=== PATIENT | male | born 1960 | race Caucasian/White ===

== ENCOUNTER 2016-06-08 13:17 | Inpatient (IN) | payer MEDICARE ==
--- NOTE | ~2016-06-08 | OP ---
Record Of Operation [facility] [address] [place]. [address] NAME: KEVAN GRIGGS : [birth year] STATUS : ADM IN PAT#: [id number] AGE: 49 ADM/REG DATE : 06/08/16 MR#: [id number] REPORT SERV DATE: 06/09/16 DICTATED BY: GUY MABRY DATE: 06/09/16 REPORT STATUS : Draft TRANSCRIBED BY: MODL DATE: 06/09/16 DATE OF PROCEDURE: 06/09/2016 CENTRAL LINE INSERTION INDICATION: Poor venous access during respiratory code. Under sterile technique on the [address] [place] [address] unit, room 109, a triple lumen was inserted into the patient, Kevan Griggs. PROCEDURE IN DETAIL: Emergent consent was implied due to the acuity of situation and no available family members. The left groin was prepped and draped in the usual sterile fashion, and under maximal sterile barriers including hat, gown, mass, gloves, and sterile drape, the site was prepared using chlorhexidine, swabs, and subsequently a finder needle was used to aspirate dark red blood from the left femoral vein. Subsequently, a dilator a guidewire was fed through the needle, and using Seldinger technique with sequential dilation, a triple-lumen catheter was inserted and secured to the skin with suture material. There was positive blood flow in all ports and Tegaderm was applied until the patient to be transported to the intensive care unit. FRANKI/ZAIDA Guy Mabry MD / [id number]
--- NOTE | ~2016-06-08 | IDS ---
Interim Discharge Summary [facility] [address] [place]. [address] NAME: LEMUEL DORMAN : 62 STATUS : ADM IN [facility]#: [id number] AGE: 55 ADM/REG DATE : 06/08/16 MR#: [id number] REPORT SERV DATE: 06/13/16 DICTATED BY: CONSUELO CUELLARBRAXTONMASHA MARK DATE: 06/13/16 REPORT STATUS : Draft TRANSCRIBED BY: ZAIDA DATE: 06/13/16 ADMISSION DATE: 06/08/2016 DISCHARGE DATE: DATE OF ADMISSION: To the Critical Care Service is 06/09/2016. DATE OF TRANSFER: To the floor is 06/13/2016. ADMITTING DIAGNOSES: 1. Hypercapnic respiratory failure, improved. 2. Severe obstructive sleep apnea, clinically on BiPAP empirically at night. 3. Obesity hypoventilation syndrome. 4. Encephalopathy, improved. 5. Hypertension with medication adjustment. 6. Clinical pneumonia, complete antibiotic therapy. 7. Chronic kidney disease, improving. 8. Tobacco dependency on Habitrol. 9. Morbid obesity. CONSULT: Neurology, who continues to follow the patient. Physical Therapy has been consulted. 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 MRI was attempted. The patient was too large to fit on the table. Echocardiogram on 06/09 demonstrated an ejection fraction of 60% with diastolic heart dysfunction, a left femoral venous line was placed on with a PICC line placed on the . EEG was performed on the demonstrating diffuse slowing with no seizure activity. CURRENT MEDICATIONS: The patient is on Bumex 1 mg daily, potassium 20 mEq daily, Dulera two puffs twice a day, iron 300 mg daily, folic acid 1 mg daily, Habitrol patch 21 mg daily, Lipitor 40 mg daily, Lopid 600 mg twice a day, Lopressor 50 mg twice a day, Lovenox 40 mg q.12 hours, melatonin 3 mg at nighttime, Neurontin 400 mg q.8 hours, Norvasc 5 mg twice a day, Plavix 75 mg daily, Prinivil 10 mg twice a day, Protonix 40 mg daily, Proventil q.4 hours while awake and q.4 hours as needed, Prozac 40 mg daily, Rocephin 2 g q.24 hours, Spiriva one capsule daily, multivitamin daily, and Zyloprim 300 mg daily. HOSPITAL COURSE: The patient was admitted to the hospitalist service on the in transfer from [place] with reported acute stroke because they did not have a CT large enough to fit the patient. He underwent CT protocol demonstrating no evidence for an acute stroke. No evidence for an old stroke. The patient was on 1 with worsening respiratory status. A code was called when the patient was unresponsive with a pCO2 of 108. The patient underwent intubation and was moved to the Critical Care Service. He remained on the ventilator until the , at which time, he was successfully weaned and has remained off the ventilator since then. A blood gas demonstrated pCO2 at 54, which is likely in his baseline range. He has worn BiPAP at nighttime, both for respiratory support of his obesity Interim Discharge Summary [address] [address] NAME: LEMUEL DORMAN : 62 STATUS : ADM IN [facility]#: [id number] AGE: 55 ADM/REG DATE : 06/08/16 MR#: [id number] REPORT SERV DATE: 06/13/16 DICTATED BY: BRAXTON GARCIA IV DATE: 06/13/16 REPORT STATUS : Draft TRANSCRIBED BY: ZAIDA DATE: 06/13/16 hypoventilation syndrome as well as his clinical severe COPD. He does have CPAP at home with which he has been noncompliant. He has required increasing doses of his antihypertensives and continues to require coverage with hydralazine or clonidine. We had held his Prinivil initially because of worsening of his creatinine, however, that has improved despite diuresis and reinstitution of his Prinivil. He has had continued improvement of his encephalopathy. He empirically had pneumonia, though cultures were negative as were urine antigens, however, he is completing a course for community-acquired pneumonia coverage. We had discussions with the family and the patient is a DNR, which is what his expressed wishes had been in the past. It was felt that he was stable for transfer to the floor and orders were provided with hospitalist to resume primary care. LUIS DANIEL/ZAIDA Braxton Garcia IV, M.D. / [id number] CC: Juan Guillen MD
--- NOTE | ~2016-06-08 | HP ---
History And Physical [facility] [address] [facility] [place]. [address] NAME: LEMUEL GRIGGS : [birth year] STATUS : ADM IN PAT#: [id number] AGE: 49 ADM/REG DATE : 06/08/16 MR#: [id number] REPORT SERV DATE: 06/08/16 DICTATED BY: VEDA ORR DATE: 06/08/16 REPORT STATUS : Draft TRANSCRIBED BY: MODL DATE: 06/08/16 DATE OF ADMISSION: 06/08/2016 HISTORY OF PRESENT ILLNESS: Mr. Griggs is a 49-year-old morbidly obese male patient who is being transferred here from [place] for "possible stroke." The patient was found to be in acute encephalopathy, and as [facility] did not have a CT scan machine to accommodate a man who almost weighed for 500 pounds, he was transferred here for CT scan of the brain and CT angiogram for possible stroke. I went to the bedside to examine the patient and all history was obtained from a distant cousin. The patient is nonverbal right now and not answering any of my questions per se. This patient was initially accepted by Dr. Jess Larios, the neurologist, who was given the information from [facility] physician, Dr. Bhakta, that the patient could have had a stroke and other information being creatinine of 1.4 and a possible left lower lobe pneumonia. At this time, however, we do not have any labs, we do not have any chest x-ray, and we do not have any ABGs on the patient. The only information I have on the chart on this patient is a CT scan of the brain that has not shown any acute infarct and a CT angiogram that has not shown anything acute either. When I went to the bedside, the patient is nonverbal and is just barely moaning. He is morbidly obese, weighing over 500 pounds with abdominal folds over hanging from the side of the bed and lying on his left side. Next, the cousin states that the patient chronically lies that way in the bed and an aunt that is also by the bedside states that this morning she found him slumped over and extremely confused and that is the reason they took him in the first place to [facility]. Family also tells me that for the last several years the patient has been constantly gaining weight and has come to this now. The patient's next of kin is only an old grandmother who requires care herself whom he lives with. He does not work. Family states that the patient smokes almost a pack a day, but he does not drink any alcohol or do any illicit drugs as far as they know. PHYSICAL EXAMINATION: VITAL SIGNS: Show that pulse is 80 per minute, blood pressure is in the 170s/90s, O2 saturation is about 90% on 4 liters of oxygen. As mentioned above, there are no labs or no ABGs on this gentleman. GENERAL: The patient is barely able to open his eyes and he constantly moans and is not answering any of my questions. NECK: The patient has an obese thick neck. CARDIOVASCULAR SYSTEM: I could appreciate S1 and S2 and the patient appears that he is in sinus rhythm. I do not have an EKG. RESPIRATORY SYSTEM: The patient has a thick chest wall and is with labored breathing, more so appears like he is snoring. But I could not appreciate any rales or rhonchi, but the clinical exam is extremely difficult in this gentleman. ABDOMEN: He is morbidly obese with abdominal folds over hanging from the bedside, but I do not see any discharge or any redness over the belly. EXTREMITIES: Both legs with chronic huge lymphedema of about 4+ on both sides and chronic History And Physical [address] [address] NAME: LEMUEL GRIGGS : [birth year] STATUS : ADM IN [facility]#: [id number] AGE: 49 ADM/REG DATE : 06/08/16 MR#: [id number] REPORT SERV DATE: 06/08/16 DICTATED BY: VEDA ORR DATE: 06/08/16 REPORT STATUS : Draft TRANSCRIBED BY: MODL DATE: 06/08/16 eczematous scaly skin with extreme thickening of the skin from lymphedema that has probably been present for several years. LABORATORY DATA: As mentioned above, I have no labs or no chest x-ray or no ABGs. ASSESSMENT AND PLAN: 1. So, my assessment and plan in this gentleman is acute encephalopathy possibly secondary to acute on chronic hypercapnic hypoxic respiratory failure because of his body habitus. However, we need to rule out seizures, and hence get a Neuro consult to see if the patient can obtain an EEG. 2. Questionable left lower lobe pneumonia, but I do not have any chest x-ray or ABGs on this patient. Hence, we will order a stat CBC, BMP, stat chest x-ray, portable, stat procalcitonin, stat ABGs, and start him on IV Levaquin. 3. Acute on chronic hypercapnic respiratory failure, probably also being responsible for his mental obtundation. Hence, we will check an ABG stat before getting a Pulmonary consult on him. Family at this time states that he is a full code as far as they know. He is 49 years old and they would definitely like to give him a chance to see if his respiratory status or mental status will improve. However, they feel that if it is going to be unnecessary prolongation of life, say beyond a week, they do not want any further treatments given. So, I assume then at this time the patient's code status is a full code. Further action on this patient will be based on all his labs, x-rays, etc., that I do not have at this time. RRA/MODL Veda Orr M.D. / [id number] CC: Veda Orr M.D.
--- NOTE | ~2016-06-08 | EEG ---
Electroencephalogram [facility] [address] [place]. [address] NAME: LEMUEL DORMAN : 62 STATUS : ADM IN PAT#: [id number] AGE: 55 ADM/REG DATE : 06/08/16 MR#: [id number] REPORT SERV DATE: 06/09/16 DICTATED BY: JESS LARIOS DATE: 06/09/16 REPORT STATUS : Draft TRANSCRIBED BY: ZAIDA DATE: 06/09/16 ELECTROENCEPHALOGRAPHY REPORT INTERPRETING PHYSICIAN: Jess Larios M.D. LOCATION: Room CCU bed 12. REASON FOR EEG: Altered mental status, morbid obesity, severe obstructive sleep apnea. 23 surface electrodes, 10-20 international placement was used. Video monitoring was utilized. Photic stimulation was performed. The patient was on the ventilatory support. The patient's weight was 470 pounds. The patient was sedated on the ventilator. The background activity consisted of poorly organized lower voltage 6-7 cycles per second located in the posterior head regions. Intermittent mild asymmetry of cerebral activity was seen with episodes of questionable rhythmic slowing seen in the left frontocentral and temporal regions. The patient was sedated, large amount of low-voltage. Fast activity was also seen in the anterior and central head regions. No sustained overt paroxysmal or epileptiform activity was seen during this study. Brief periods of arousal with increase of overall muscle activity was seen. At that time, the background activity appeared to show low voltage 7-8 cycles per second located in the posterior head regions. Stage 2 and 3 sleep were observed. Moderate amount of EKG artifact was seen. The patient's phototypesetting equipment monitor showed sinus rhythm, rate of approximately 60 beats per minute-borderline bradycardia. Photic stimulation did not bring out additional abnormalities. No driving response was observed in the occipital regions. IMPRESSION: ABNORMAL EEG CHARACTERIZED BY PRESENCE OF DIFFUSE SLOWING AND MILD ASYMMETRY OF CEREBRAL ACTIVITY. THE PATIENT WAS SEDATED ON THE VENTILATORY SUPPORT. BRIEF PERIODS OF AROUSAL SHOWED IMPROVEMENT AND DECREASE OF SLOWING, WHICH IS COMPATIBLE WITH APPROPRIATE AROUSAL RESPONSE. NO EPILEPTIFORM OR PAROXYSMAL ACTIVITY WAS SEEN DURING THIS STUDY. CLINICAL CORRELATION IS RECOMMENDED. REPEAT EEG WITHOUT SEDATION ON THE PATIENT IS DETERMINED TO BE COOPERATIVE WOULD BE IMPORTANT IN TERMS OF PROVIDING PROGNOSTICATION. CLINICAL CORRELATION IS RECOMMENDED. LENNOX Jess Larios MD / [id number] CC: Juan Guillen MD
--- NOTE | ~2016-06-08 | IDS ---
Interim Discharge Summary [facility] [address] [place]. [address] NAME: LEMUEL DORMAN : 62 STATUS : ADM IN [facility]#: [id number] AGE: 55 ADM/REG DATE : 06/08/16 MR#: [id number] REPORT SERV DATE: 06/16/16 DICTATED BY: DATE: REPORT STATUS : Draft TRANSCRIBED BY: MODL DATE: 06/16/16 ADMISSION DATE: 06/08/2016 DISCHARGE DATE: INTERIM DISCHARGE DIAGNOSES: 1. Severe chronic obstructive pulmonary disease. 2. Encephalopathy. 3. Obstructive sleep apnea with CPAP. 4. Morbid obesity with a body mass index of 56.8. 5. Severe lower extremity lymphedema that is chronic. 6. Skin tear on buttocks. 7. Chronic hypoxic hypercapnic respiratory failure. 8. Tobacco abuse. 9. Chronic kidney disease stage 3. However, unclear on baseline creatinine. 10.Mild left ventricular hypertrophy. 11.History of right middle cerebral artery stroke. CONSULTING PHYSICIANS: Include Dr. Larios, with Neurology and the Critical Care Service. IMAGING: Includes a chest x-ray x7, the last showing resolved pulmonary edema, some residual vascular congestion, left lung base opacity that is unchanged. He had a transthoracic echocardiogram, which showed some mild left ventricular hypertrophy. He had a CT of the brain without contrast which did not demonstrate an acute intracranial abnormality. It did show atrophy and old right MCA infarct. He had carotid ultrasound. It showed no evidence of significant carotid stenosis. Category 1 disease bilaterally. He had a bilateral venous Doppler of the lower extremities which showed no evidence of DVT. He had a portable KUB which showed an unremarkable gas pattern and an NG tube. For full H and P, please refer to Dr. Stacie North's dictation on 06/08/2016. Please also refer to Dr. Iris Ba's critical care code blue response dictation on 06/08/2016, Dr. Emre Garcia's interim discharge summary on 06/13/2016. HOSPITAL COURSE/PROBLEM LIST: 1. Chronic hypoxic hypercapnic respiratory failure, severe chronic obstructive pulmonary disease, and obesity hypoventilation syndrome. The patient is not in any acute respiratory distress at this time. We have been weaning his O2 down, currently is 2 L saturating 95%. He requires CPAP at home tonight which we have continued here in the hospital. I believe he is at baseline respiratory status. He may need to be evaluated for home O2 at some point. 2. Metabolic encephalopathy. This has resolved. 3. Morbid obesity with a body mass index of 56.8. Consulted dietitian due to his hypoalbuminemia with an albumin level of 2.5 as well as nutritional education. The patient states he would like to lose weight and become healthier post discharge, however, the tax staff accountant did not feel that he needed dietary education even though his BMI is 56.8. Interim Discharge Summary [facility] [address] [place]. [address] NAME: LEMUEL DORMAN : 62 STATUS : ADM IN PAT#: [id number] AGE: 55 ADM/REG DATE : 06/08/16 MR#: [id number] REPORT SERV DATE: 06/16/16 DICTATED BY: DATE: REPORT STATUS : Draft TRANSCRIBED BY: MODL DATE: 06/16/16 4. Severe lower extremity lymph edema. 5. Skin tear. Wound Care has been working with him on these issues. 6. Tobacco abuse. The patient has got a nicotine patch on. 7. Chronic kidney disease stage 3. Based on the creatinine levels that we have here, I would say the patient is in stage III, however, I do not know what his true baseline is. His creatinine today was 1.71. He has been on Bumex 1 mg p.o. daily. We are going to decrease this to 0.5, considering his creatinine two days ago was 1.37. The patient has been evaluated by Physical Therapy, who recommended inpatient rehab. He has been choiced for the bridge. He should be able to be discharged tomorrow. The patient is a DNR. MIS/MODL Sp Welch NP / [id number] CC: MD Enoc Rankin APN Ryan Scott McNamara, M.D.
--- NOTE | ~2016-06-08 | CN ---
Consultation Report [facility] [address] [place]. [address] NAME: KEVAN GRIGGS : [birth year] STATUS : ADM IN PAT#: [id number] AGE: 49 ADM/REG DATE : 06/08/16 MR#: [id number] REPORT SERV DATE: 06/09/16 DICTATED BY: IRIS MABRY DATE: 06/09/16 REPORT STATUS : Draft TRANSCRIBED BY: MODL DATE: 06/09/16 PULMONARY AND CRITICAL CARE RESPONSE NOTE DATE OF CONSULTATION: Code Blue was fired on Kevan Griggs in room 109 due to respiratory distress and a question of PEA arrest. On my arrival, a short time later, he actually had not had any chest compressions performed and did have a pulse. He never lost his pulse to our knowledge and never required CPR. He was in marked respiratory distress with a respiratory rate around 48 breaths per minute with marked accessary muscle use. The patient is morbidly obese with redundant soft tissue around the neck. He had no intravenous access, and multiple nurses including IV team had attempted to stick him in order to administer medications. His initial ABG showed a pH of 6.90 with a CO2 level of 107 and relative hypoxemia. He also has hypokalemia. The patient was easily baggable with a sat of 98%, and GlideScope was obtained due to predicted difficult airway. A #4 GlideScope was ultimately used to advance into the edentulous mouth to visualize the cords, which were not easily visualized, he has a marked anterior airway with copious redundant soft tissue with a poor supraglottic review. He was also fighting a lot, in that he had not yet received any medications for intubation as there was no IV access. Decision was made to proceed with bagging as the patient was easily ventilated with the Ambu with satisfactory oxygen saturation, and femoral line was inserted under sterile technique; please see my separate dictation. In the interim, we have asked for bougie and PEEP valve from the Respiratory Department as well as asked Anesthesia, who are already in the building, to bring a portable, flexible fiberoptic scope to the bedside as we had already had a brief view of his upper airway, which was visualized to be a poor view and predicted to be difficult to intubate. Anesthesia, Dr. Tong, actually arrived at the bedside as I was finishing the central line and was able to assist with endotracheal intubation using the #4 GlideScope and a #8 tube. Following administration of 30 of etomidate, we were able to relax the patient enough to advance the GlideScope into his mouth and actually were able to pass a #8 ET tube into his trachea. There was positive CO2 detection as well as color change with bagging. He had a condensation in the tube with bagging and bilateral breath sounds after placement of the endotracheal tube. He was easily bagged, and at this point with both central line and endotracheal tube and satisfactory vital signs, we elected to transport to the CCU, which was difficult in light of his bariatric bed and narrow elevators. There was a significant amount of delay in getting him transported through the hospital, and we were ultimately able to get him settled in the CCU bed 12 where he remains hemodynamically stable and is now being sedated with propofol and fentanyl. I have discussed the case at length with Dr. Davis Oliver from the [facility] Medicine Service, who has been communicating with his cousin, who was the only family available this morning. It sounds like he has already had a code status discussion with Dr. Stacie North, who rounded on him yesterday, and he does wish to be a full code. Davis Oliver did explain that the patient's morbid obesity is a major impediment to his recovery, and they verbalized their understanding. All questions were answered, and we will proceed with stabilizing him in the CCU this morning. Consultation Report [address] [address] NAME: KEVAN GRIGGS : [birth year] STATUS : ADM IN [facility]#: [id number] AGE: 49 ADM/REG DATE : 06/08/16 MR#: [id number] REPORT SERV DATE: 06/09/16 DICTATED BY: IRIS MABRY DATE: 06/09/16 REPORT STATUS : Draft TRANSCRIBED BY: ZAIDA DATE: 06/09/16 Approximately one hour of critical care time was spent uninterrupted participating in Mr. Griggs's care this morning, assessing, stabilizing and that is excluding procedures. FRANKI/ZAIDA Iris Mabry MD / [id number]
--- NOTE | ~2016-06-08 | DS ---
Discharge Summary [facility] [address] [place]. [address] NAME: LEMUEL DORMAN : 62 STATUS : DIS IN PAT#: [id number] AGE: 55 ADM/REG DATE : 06/08/16 MR#: [id number] REPORT SERV DATE: 06/20/16 DICTATED BY: ENOC WAY DATE: 06/19/16 REPORT STATUS : Draft TRANSCRIBED BY: MODRosaura DATE: 06/19/16 ADMISSION DATE: 06/08/2016 DISCHARGE DATE: 06/19/2016 REASON FOR ADMISSION: This was a 55-year-old morbidly obese male, who was being transferred from [facility] for a possible stroke. Apparently, the patient was too large to fit in a CT scan machine due to him weighing almost 500 pounds and was transferred to [facility] for CT scan of the brain. DISCHARGE DIAGNOSES: 1. Severe chronic obstructive pulmonary disease, obstructive sleep apnea, obesity hypoventilation syndrome with chronic hypercapnic respiratory failure. 2. Status post encephalopathy secondary to hypercapnic respiratory failure. 3. Morbid obesity with a BMI of 56.8. 4. Chronic lower extremity lymphedema. 5. Skin tear on buttocks present on admission. 6. Salgado catheter secondary to obesity related urinary obstruction retention. 7. Acute kidney injury/chronic kidney disease. HOSPITAL COURSE: Please see admission H and P on 06/08/2016 from [facility] and interim discharge summaries from [facility] on 06/13/2016 and [facility] on 06/16/2016 for full details on admission and hospital stay. 1. Severe COPD, obstructive sleep apnea, obesity hypoventilation syndrome, and chronic hypercapnic respiratory failure. The patient was admitted to hospitalist service on 06/08/2016 and transfer from [place] with reported acute stroke and for evaluation because they did have a CT scanner large enough to fit the patient. He underwent CT protocol demonstrating no evidence of acute stroke, no evidence of old stroke. The patient was on 1 [address] with worsening respiratory status. A code was called when the patient was unresponsive with a pCO2 of 108. The patient underwent intubation and was moved to Critical Care Service. He remained on the ventilator until 06/11/2016 and was successfully weaned and remained off the ventilator after that point, but repeat blood gas showed a pCO2 of 54, which is likely his baseline range given his severe COPD, obstructive sleep apnea, and obesity hypoventilation syndrome. He has since been weaned to 2 L nasal cannula and likely will be able to weaned off oxygen altogether once at rehab. Also his encephalopathy symptoms of confusion resolved after his pCO2 was improved. 2. Chronic lower extremity lymphedema. The patient was being diuresed with Bumex 0.5 mg p.o. b.i.d., which was successfully diuresing him and he after initially having acute kidney injury after the resolution of that he was restarted on his MARGARET inhibitor. His creatinine started slowly rising again once that medicine was restarted along with diuretic going from 1.37 up to 1.71 on 06/16/2016 and then up to 3.0 on 06/17/2016. Bumex was held, MARGARET inhibitor was discontinued, and gentle IV hydration was given and creatinine has since come back down to 2.14. We will continue him on low-dose torsemide 20 mg p.o. daily at discharge. This might need to be titrated up at rehab if not having adequate urine output. 3. Salgado catheter secondary to obesity related urine retention. The patient has had a Discharge Summary [facility] [id number] [place]. [address] NAME: LEMUEL DORMAN : 62 STATUS : DIS IN PAT#: [id number] AGE: 55 ADM/REG DATE : 06/08/16 MR#: [id number] REPORT SERV DATE: 06/20/16 DICTATED BY: ENOC WAY DATE: 06/19/16 REPORT STATUS : Draft TRANSCRIBED BY: ZAIDA DATE: 06/19/16 Salgado catheter in since his admission due to that we have started doing bladder training, we have not discontinued catheter yet. We will transfer him with catheter in place, continue bladder training and discontinue catheter next one to two days. Also of note, with the patient's chronic lower extremity edema recommended lymphedema wraps at nursing home rehab. Also, has chronic thickened skin on his legs and I have referred him for wound care at nursing home rehab as well. DISCHARGE CONDITION: Stable. DISCHARGE MEDICATIONS: 1. Prozac 40 mg p.o. daily. 2. Folic acid 1 mg p.o. daily. 3. Lipitor 40 mg p.o. at bedtime. 4. Neurontin 300 mg p.o. t.i.d. 5. Lopid 600 mg p.o. b.i.d. 6. Plavix 75 mg p.o. daily. 7. Allopurinol 300 mg p.o. daily. 8. Metoprolol 25 mg p.o. b.i.d. 9. Torsemide 20 mg p.o. daily. 10.Potassium chloride 20 mEq p.o. daily. 11.Omeprazole 20 mg p.o. daily. 12.Multivitamin one tablet p.o. daily. 13.BuSpar 10 mg p.o. t.i.d. DISCHARGE PLAN: The patient is discharged to the [facility] in [facility] for nursing home rehab and follow up with primary care after discharge. VERO/ZAIDA [address] APN / [id number] CC: Frankie Choi M.D.
[2016-06-08 15:18] LABS: ALLENS TEST Pos; BE (BASE EXCESS) 1.8 MEQ/L (0 +/- 2.5); CARBOXYHEMOGLOBIN 1.8 % (0-3); DEVICE NC; HCO3 (ACTUAL BICARBONATE) 29.1 MEQ/L (23-27); HEMOBLOGIN CONTENT 14.4 G/DL (14-18); INSTRUMENT SERIAL # 8083; METHEMOGLOBIN 0.2 % (0-3); O2 CONTENT 18.8 VOL% (18-24); PCO2 (CO2 TENSION) 56 MMHG (35-45); PO2 (O2 TENSION) 80 MMHG (79-93); SAMPLE Arterial; pH 7.33 (7.37-7.43)
[2016-06-08 16:34] LABS: BASOPHILS 0.1 %; BASOPHILS ABSOLUTE 0.01 10/3/uL (0.0-0.16); EOSINOPHILS 0.2 %; EOSINOPHILS ABSOLUTE 0.03 10/3/uL (0.0-0.53); HEMOGLOBIN 14.7 g/dL (13.6-17.8); IMMATURE GRANULOCYTES 0.2 %; IMMATURE GRANULOCYTES ABSOLUTE 0.03 10/3/uL (0.0-0.11); LYMPHOCYTES 15.4 %; MEAN CORPUS HGB CONC 33.4 g/dL (32.0-36.0); MEAN CORPUSCULAR HEMOGLOB 28.4 pg (26.0-34.0); MEAN CORPUSCULAR VOLUME 84.9 fL (80-100); MEAN PLATELET VOLUME 8.3 fL (9.2-13.0); MONOCYTES 6.5 %; NEUTROPHILS 77.6 %; NEUTROPHILS ABSOLUTE 9.58 10/3/uL (2.02-8.40); PLATELET COUNT 212 10/3/uL (150-400); RBC DISTRIBUTION WIDTH 14.8 % (12.0-16.0); RED CELL COUNT 5.18 10/6/uL (4.7-6.1); WHITE BLOOD CELLS 12.4 10/3/uL (4.5-10.5)
[2016-06-08 16:35] LABS: MANUAL DIFF NO %
[2016-06-08 16:56] LABS: BUN (BLOOD UREA NITROGEN) 19 MG/DL (6-23); CALCIUM, SERUM 9.2 MG/DL (8.5-10.4); CHLORIDE, SERUM 106 MMOL/L (96-112); CO2 (CARBON DIOXIDE) 31 MMOL/L (24-34); CREATININE 1.49 MG/DL (0.70-1.30); GFR AFRICAN AMERICAN 63 ML/MIN (>=60); GFR NON AFRICAN AMERICAN 55 ML/MIN (>=60); GLUCOSE, SERUM 107 MG/DL (60-99); SODIUM, SERUM 144 MMOL/L (135-148)
[2016-06-08 18:12] LABS: PROCALCITONIN 0.05 ng/mL (<0.5)
[2016-06-08] MEDS ORDERED: LIPITOR40 PO (19:51)
[2016-06-08] MEDS ORDERED: FOLIC PO (19:51)
[2016-06-08] MEDS ORDERED: PROZAC40 MG PO (19:51)
[2016-06-08] MEDS ORDERED: NEUR300 PO (19:52)
[2016-06-08] MEDS ORDERED: ATARAX50B PO (19:52)
[2016-06-08] MEDS ORDERED: OXYCOD PO (19:52)
[2016-06-08] MEDS ORDERED: [UNRECOGNIZED DRUG - REMARK] TOP (19:53)
[2016-06-08] MEDS ORDERED: LOP25 PO (19:54)
[2016-06-08] MEDS ORDERED: PRIN20 PO (19:54)
[2016-06-08] MEDS ORDERED: WOUND TOP (19:54)
[2016-06-08] MEDS ORDERED: Z300 PO (19:54)
[2016-06-08] MEDS ORDERED: L40 PO (19:54)
[2016-06-08] MEDS ORDERED: PLAVIX PO (19:54)
[2016-06-08] MEDS ORDERED: LOPID6 PO (19:54)
[2016-06-08] MEDS ORDERED: NORV10 PO (19:55)
[2016-06-08] MEDS ORDERED: CENTRUM PO (19:55)
[2016-06-08] MEDS ORDERED: PRILO PO (19:55)
[2016-06-08] MEDS ORDERED: KDUR20 PO (19:55)
[2016-06-08] MEDS ORDERED: NIASPAN500 PO (19:55)
[2016-06-08] MEDS ORDERED: *UNABLE1 (19:58)
[2016-06-09 07:44] LABS: ALLENS TEST Pos; BE (BASE EXCESS) 0.1 MEQ/L (0 +/- 2.5); CARBOXYHEMOGLOBIN 0.8 % (0-3); HCO3 (ACTUAL BICARBONATE) 28.3 MEQ/L (23-27); HEMOBLOGIN CONTENT 15.9 G/DL (14-18); INSTRUMENT SERIAL # 35151; METHEMOGLOBIN 0.5 % (0-3); MODE CMV; O2 CONTENT 21.7 VOL% (18-24); PCO2 (CO2 TENSION) 61 MMHG (35-45); PO2 (O2 TENSION) 113 MMHG (79-93); SAMPLE Arterial; TIDAL VOLUME 500 ML; pH 7.29 (7.37-7.43)
[2016-06-09 09:47] LABS: ASCORBIC ACID (UR NOT ORDER) NEG (NEG); BILIRUBIN, URINE NEGATIVE (NEG); KETONE, URINE NEGATIVE (NEG); LEUKOCYTE ESTERASE(NOT OR NEG (NEG); WBC (NOT ORDERED) (RFLEX) 19 (0-5)
[2016-06-09 10:04] LABS: AMPHETAMINES (NOT ORD) NEG (NEG); BARBITURATES (NOT ORDERED NEG (NEG); BENZODIAZEPINES (NOT ORD) NEG (NEG); CANNABINOIDS (THC) NEG (NEG); COCAINE (NOT ORDERED) NEG (NEG); OPIATES NEG (NEG); PHENCYCLIDINE(PCP) NEG (NEG); TRICYCLICS NEG (NEG)
[2016-06-09 10:08] LABS: BASOPHILS 0.1 %; BASOPHILS ABSOLUTE 0.01 10/3/uL (0.0-0.16); EOSINOPHILS 0.1 %; EOSINOPHILS ABSOLUTE 0.02 10/3/uL (0.0-0.53); HEMATOCRIT 41.3 % (40.0-51.0); HEMOGLOBIN 13.5 g/dL (13.6-17.8); IMMATURE GRANULOCYTES 0.5 %; IMMATURE GRANULOCYTES ABSOLUTE 0.09 10/3/uL (0.0-0.11); LYMPHOCYTES 10.4 %; LYMPHOCYTES ABSOLUTE 1.78 10/3/uL (0.67-4.30); MEAN CORPUS HGB CONC 32.7 g/dL (32.0-36.0); MEAN CORPUSCULAR HEMOGLOB 28.1 pg (26.0-34.0); MEAN PLATELET VOLUME 8.2 fL (9.2-13.0); MONOCYTES 8.2 %; NEUTROPHILS 80.7 %; NEUTROPHILS ABSOLUTE 13.75 10/3/uL (2.02-8.40); PLATELET COUNT 201 10/3/uL (150-400); RBC DISTRIBUTION WIDTH 14.7 % (12.0-16.0); WHITE BLOOD CELLS 17.1 10/3/uL (4.5-10.5)
[2016-06-09 10:12] LABS: MANUAL DIFF NO %
[2016-06-09 10:21] LABS: BE (BASE EXCESS) 3.9 MEQ/L (0 +/- 2.5); HCO3 (ACTUAL BICARBONATE) 28.3 MEQ/L (23-27); INSTRUMENT SERIAL # 35151; PCO2 (CO2 TENSION) 42 MMHG (35-45); PO2 (O2 TENSION) 193 MMHG (79-93); pH 7.45 (7.37-7.43)
[2016-06-09 10:22] LABS: ALLENS TEST Pos; HEMOBLOGIN CONTENT 14.5 G/DL (14-18); METHEMOGLOBIN 0.6 % (0-3); O2 CONTENT 20.4 VOL% (18-24); SAMPLE Arterial; TIDAL VOLUME 650 ML
[2016-06-09 10:48] LABS: A/G RATIO 0.7 (0.7-1.9); ALBUMIN 2.6 G/DL (3.5-5.0); ALKALINE PHOSPHATASE 122 U/L (45-117); BUN (BLOOD UREA NITROGEN) 19 MG/DL (6-23); CALCIUM, SERUM 8.8 MG/DL (8.5-10.4); CHLORIDE, SERUM 104 MMOL/L (96-112); CO2 (CARBON DIOXIDE) 32 MMOL/L (24-34); CREATININE 1.89 MG/DL (0.70-1.30); GFR AFRICAN AMERICAN 46 ML/MIN (>=60); GFR NON AFRICAN AMERICAN 39 ML/MIN (>=60); GLOBULIN 3.9 G/DL (2.5-4.1); GLUCOSE, SERUM 110 MG/DL (60-99); IRON BINDING CAPACITY 213 MCG/DL (250-450); IRON, SERUM 25 MCG/DL (35-150); PHOSPHORUS, SERUM 3.4 MG/DL (2.5-4.5); POTASSIUM, SERUM 3.4 MMOL/L (3.5-5.3); SGOT(AST) 25 U/L (5-40); SGPT(ALT) 20 U/L (5-65); SODIUM, SERUM 144 MMOL/L (135-148); TOTAL BILIRUBIN 0.5 MG/DL (0-1.2); TOTAL PROTEIN 6.5 G/DL (6.0-8.5)
[2016-06-09 10:49] LABS: FOLATE 11.5 NG/ML (>5.2); TROPONIN I 0.61 NG/ML (<0.05)
[2016-06-09] MEDS ORDERED: BUSPAR10 PO (16:25)
[2016-06-10 05:59] LABS: HEMOGLOBIN 12.9 g/dL (13.6-17.8); MEAN CORPUS HGB CONC 33.1 g/dL (32.0-36.0); MEAN CORPUSCULAR HEMOGLOB 28.6 pg (26.0-34.0); MEAN CORPUSCULAR VOLUME 86.5 fL (80-100); MEAN PLATELET VOLUME 8.9 fL (9.2-13.0); PLATELET COUNT 189 10/3/uL (150-400); RBC DISTRIBUTION WIDTH 15.1 % (12.0-16.0); RED CELL COUNT 4.51 10/6/uL (4.7-6.1)
[2016-06-10 06:01] LABS: MANUAL DIFF YES %; WHITE BLOOD CELLS 7.9 10/3/uL (4.5-10.5)
[2016-06-10 06:15] LABS: BUN (BLOOD UREA NITROGEN) 19 MG/DL (6-23); CALCIUM, SERUM 8.6 MG/DL (8.5-10.4); CHLORIDE, SERUM 105 MMOL/L (96-112); CO2 (CARBON DIOXIDE) 23 MMOL/L (24-34); CREATININE 1.69 MG/DL (0.70-1.30); GFR AFRICAN AMERICAN 52 ML/MIN (>=60); GFR NON AFRICAN AMERICAN 45 ML/MIN (>=60); GLUCOSE, SERUM 96 MG/DL (60-99); PHOSPHORUS, SERUM 3.7 MG/DL (2.5-4.5); POTASSIUM, SERUM 4.1 MMOL/L (3.5-5.3); SODIUM, SERUM 138 MMOL/L (135-148)
[2016-06-10 06:45] LABS: BAND NEUTROPHILS 7 %; EOSINOPHILS 2 %; EOSINOPHILS ABSOLUTE (CALC) 0.16 10/3/uL (0.0-0.53); LYMPHOCYTES 13 %; LYMPHOCYTES ABSOLUTE (CALC) 1.03 10/3/uL (0.67-4.30); MONOCYTES 3 %; MONOCYTES ABSOLUTE (CALC) 0.24 10/3/uL (0.21-1.20); NEUTROPHILS ABSOLUTE (CALC) 6.48 10/3/uL (2.02-8.40); PLATELET ESTIMATE ADQ (ADEQUATE); SEGMENTED NEUTROPHIL (0) 75 %; TOTAL NUCLEATED CELLS 100
[2016-06-10 06:46] LABS: RBC MORPHOLOGY NORM (NORMAL)
[2016-06-11 03:51] LABS: ALLENS TEST Pos; BE (BASE EXCESS) 1.9 MEQ/L (0 +/- 2.5); CARBOXYHEMOGLOBIN 0.3 % (0-3); HCO3 (ACTUAL BICARBONATE) 26.8 MEQ/L (23-27); HEMOBLOGIN CONTENT 12.4 G/DL (14-18); INSTRUMENT SERIAL # 35151; METHEMOGLOBIN 0.6 % (0-3); MODE CMV; O2 CONTENT 16.7 VOL% (18-24); OPERATOR ID 16469; PCO2 (CO2 TENSION) 43 MMHG (35-45); PO2 (O2 TENSION) 93 MMHG (79-93); SAMPLE Arterial; TIDAL VOLUME 650 ML; pH 7.42 (7.37-7.43)
[2016-06-11 04:57] LABS: HEMATOCRIT 37.6 % (40.0-51.0); HEMOGLOBIN 12.2 g/dL (13.6-17.8); MEAN CORPUS HGB CONC 32.4 g/dL (32.0-36.0); MEAN CORPUSCULAR HEMOGLOB 28.5 pg (26.0-34.0); MEAN CORPUSCULAR VOLUME 87.9 fL (80-100); MEAN PLATELET VOLUME 8.7 fL (9.2-13.0); PLATELET COUNT 175 10/3/uL (150-400); RBC DISTRIBUTION WIDTH 15.6 % (12.0-16.0); RED CELL COUNT 4.28 10/6/uL (4.7-6.1)
[2016-06-11 04:58] LABS: MANUAL DIFF YES %
[2016-06-11 05:56] LABS: BAND NEUTROPHILS 1 %; EOSINOPHILS 5 %; LYMPHOCYTES 14 %; LYMPHOCYTES ABSOLUTE (CALC) 0.84 10/3/uL (0.67-4.30); MONOCYTES 5 %; NEUTROPHILS ABSOLUTE (CALC) 4.56 10/3/uL (2.02-8.40); SEGMENTED NEUTROPHIL (0) 75 %; TOTAL NUCLEATED CELLS 100
[2016-06-11 06:00] LABS: PLATELET ESTIMATE ADQ (ADEQUATE); RBC MORPHOLOGY NORM (NORMAL)
[2016-06-11 08:17] LABS: BUN (BLOOD UREA NITROGEN) 16 MG/DL (6-23); CALCIUM, SERUM 8.2 MG/DL (8.5-10.4); CHLORIDE, SERUM 107 MMOL/L (96-112); CREATININE 1.57 MG/DL (0.70-1.30); GFR AFRICAN AMERICAN 57 ML/MIN (>=60); GFR NON AFRICAN AMERICAN 49 ML/MIN (>=60); POTASSIUM, SERUM 3.5 MMOL/L (3.5-5.3)
[2016-06-11 08:18] LABS: CO2 (CARBON DIOXIDE) 29 MMOL/L (24-34); GLUCOSE, SERUM 117 MG/DL (60-99); SODIUM, SERUM 145 MMOL/L (135-148)
[2016-06-12 03:27] LABS: ALLENS TEST Pos; BE (BASE EXCESS) 6.3 MEQ/L (0 +/- 2.5); BIPAP 15/8 cm.H2O; CARBOXYHEMOGLOBIN 0.3 % (0-3); HCO3 (ACTUAL BICARBONATE) 32.8 MEQ/L (23-27); HEMOBLOGIN CONTENT 14.5 G/DL (14-18); INSTRUMENT SERIAL # 35151; METHEMOGLOBIN 0.6 % (0-3); O2 CONTENT 19.7 VOL% (18-24); OPERATOR ID 31061; PCO2 (CO2 TENSION) 54 MMHG (35-45); PO2 (O2 TENSION) 100 MMHG (79-93); SAMPLE Arterial
[2016-06-12 04:23] LABS: BUN (BLOOD UREA NITROGEN) 14 MG/DL (6-23); CALCIUM, SERUM 8.8 MG/DL (8.5-10.4); CHLORIDE, SERUM 113 MMOL/L (96-112); CO2 (CARBON DIOXIDE) 32 MMOL/L (24-34); CREATININE 1.64 MG/DL (0.70-1.30); GFR AFRICAN AMERICAN 54 ML/MIN (>=60); GFR NON AFRICAN AMERICAN 47 ML/MIN (>=60); GLUCOSE, SERUM 107 MG/DL (60-99); PHOSPHORUS, SERUM 3.7 MG/DL (2.5-4.5); POTASSIUM, SERUM 3.7 MMOL/L (3.5-5.3); SODIUM, SERUM 151 MMOL/L (135-148)
[2016-06-12 04:26] LABS: ALBUMIN 2.5 G/DL (3.5-5.0)
[2016-06-13 04:47] LABS: BASOPHILS 0.2 %; BASOPHILS ABSOLUTE 0.01 10/3/uL (0.0-0.16); EOSINOPHILS 2.6 %; EOSINOPHILS ABSOLUTE 0.17 10/3/uL (0.0-0.53); HEMOGLOBIN 13.9 g/dL (13.6-17.8); IMMATURE GRANULOCYTES 0.5 %; IMMATURE GRANULOCYTES ABSOLUTE 0.03 10/3/uL (0.0-0.11); LYMPHOCYTES 14.3 %; LYMPHOCYTES ABSOLUTE 0.94 10/3/uL (0.67-4.30); MEAN CORPUS HGB CONC 31.5 g/dL (32.0-36.0); MEAN CORPUSCULAR HEMOGLOB 28.1 pg (26.0-34.0); MEAN CORPUSCULAR VOLUME 89.1 fL (80-100); MEAN PLATELET VOLUME 8.3 fL (9.2-13.0); MONOCYTES 7.8 %; MONOCYTES ABSOLUTE 0.51 10/3/uL (0.21-1.20); NEUTROPHILS 74.6 %; PLATELET COUNT 211 10/3/uL (150-400); RBC DISTRIBUTION WIDTH 15.3 % (12.0-16.0); RED CELL COUNT 4.95 10/6/uL (4.7-6.1); WHITE BLOOD CELLS 6.6 10/3/uL (4.5-10.5)
[2016-06-13 04:49] LABS: HEMATOCRIT 44.1 % (40.0-51.0); MANUAL DIFF NO %
[2016-06-13 04:54] LABS: BUN (BLOOD UREA NITROGEN) 15 MG/DL (6-23); CALCIUM, SERUM 8.8 MG/DL (8.5-10.4); CHLORIDE, SERUM 107 MMOL/L (96-112); CO2 (CARBON DIOXIDE) 31 MMOL/L (24-34); CREATININE 1.41 MG/DL (0.70-1.30); GFR AFRICAN AMERICAN 65 ML/MIN (>=60); GFR NON AFRICAN AMERICAN 56 ML/MIN (>=60); GLUCOSE, SERUM 116 MG/DL (60-99); SODIUM, SERUM 145 MMOL/L (135-148)
[2016-06-14 09:04] LABS: ALBUMIN 2.7 G/DL (3.5-5.0); CALCIUM, SERUM 8.8 MG/DL (8.5-10.4); CHLORIDE, SERUM 104 MMOL/L (96-112); CO2 (CARBON DIOXIDE) 29 MMOL/L (24-34); CREATININE 1.37 MG/DL (0.70-1.30); GFR AFRICAN AMERICAN 67 ML/MIN (>=60); GFR NON AFRICAN AMERICAN 58 ML/MIN (>=60); GLUCOSE, SERUM 128 MG/DL (60-99); POTASSIUM, SERUM 3.5 MMOL/L (3.5-5.3); SODIUM, SERUM 143 MMOL/L (135-148)
[2016-06-14 09:06] LABS: BUN (BLOOD UREA NITROGEN) 20 MG/DL (6-23); PHOSPHORUS, SERUM 2.6 MG/DL (2.5-4.5)
[2016-06-14 11:10] LABS: BASOPHILS 0.1 %; BASOPHILS ABSOLUTE 0.01 10/3/uL (0.0-0.16); EOSINOPHILS 4.6 %; EOSINOPHILS ABSOLUTE 0.34 10/3/uL (0.0-0.53); HEMATOCRIT 43.7 % (40.0-51.0); HEMOGLOBIN 13.9 g/dL (13.6-17.8); IMMATURE GRANULOCYTES 0.7 %; IMMATURE GRANULOCYTES ABSOLUTE 0.05 10/3/uL (0.0-0.11); LYMPHOCYTES 23.6 %; LYMPHOCYTES ABSOLUTE 1.75 10/3/uL (0.67-4.30); MEAN CORPUS HGB CONC 31.8 g/dL (32.0-36.0); MEAN CORPUSCULAR HEMOGLOB 27.9 pg (26.0-34.0); MEAN CORPUSCULAR VOLUME 87.6 fL (80-100); MEAN PLATELET VOLUME 8.6 fL (9.2-13.0); MONOCYTES 4.9 %; MONOCYTES ABSOLUTE 0.36 10/3/uL (0.21-1.20); NEUTROPHILS 66.1 %; PLATELET COUNT 213 10/3/uL (150-400); RBC DISTRIBUTION WIDTH 15.6 % (12.0-16.0); RED CELL COUNT 4.99 10/6/uL (4.7-6.1); WHITE BLOOD CELLS 7.4 10/3/uL (4.5-10.5)
[2016-06-14 11:11] LABS: MANUAL DIFF NO %
[2016-06-15 05:19] LABS: BASOPHILS 0.2 %; BASOPHILS ABSOLUTE 0.02 10/3/uL (0.0-0.16); EOSINOPHILS 3.6 %; EOSINOPHILS ABSOLUTE 0.32 10/3/uL (0.0-0.53); HEMATOCRIT 42.3 % (40.0-51.0); HEMOGLOBIN 13.4 g/dL (13.6-17.8); IMMATURE GRANULOCYTES 0.7 %; IMMATURE GRANULOCYTES ABSOLUTE 0.06 10/3/uL (0.0-0.11); LYMPHOCYTES ABSOLUTE 2.31 10/3/uL (0.67-4.30); MEAN CORPUS HGB CONC 31.7 g/dL (32.0-36.0); MEAN CORPUSCULAR HEMOGLOB 27.7 pg (26.0-34.0); MEAN CORPUSCULAR VOLUME 87.6 fL (80-100); MEAN PLATELET VOLUME 8.4 fL (9.2-13.0); NEUTROPHILS 60.5 %; NEUTROPHILS ABSOLUTE 5.38 10/3/uL (2.02-8.40); PLATELET COUNT 208 10/3/uL (150-400); RBC DISTRIBUTION WIDTH 15.7 % (12.0-16.0); RED CELL COUNT 4.83 10/6/uL (4.7-6.1); WHITE BLOOD CELLS 8.9 10/3/uL (4.5-10.5)
[2016-06-15 05:26] LABS: MANUAL DIFF NO %
[2016-06-15 05:36] LABS: CALCIUM, SERUM 8.9 MG/DL (8.5-10.4); CHLORIDE, SERUM 107 MMOL/L (96-112); CO2 (CARBON DIOXIDE) 29 MMOL/L (24-34); CREATININE 1.67 MG/DL (0.70-1.30); GFR AFRICAN AMERICAN 53 ML/MIN (>=60); GFR NON AFRICAN AMERICAN 46 ML/MIN (>=60); GLUCOSE, SERUM 103 MG/DL (60-99); SODIUM, SERUM 145 MMOL/L (135-148)
[2016-06-15 05:37] LABS: BUN (BLOOD UREA NITROGEN) 27 MG/DL (6-23)
[2016-06-16 04:37] LABS: BASOPHILS 0.2 %; BASOPHILS ABSOLUTE 0.02 10/3/uL (0.0-0.16); EOSINOPHILS ABSOLUTE 0.32 10/3/uL (0.0-0.53); HEMATOCRIT 42.2 % (40.0-51.0); HEMOGLOBIN 13.4 g/dL (13.6-17.8); IMMATURE GRANULOCYTES 0.9 %; IMMATURE GRANULOCYTES ABSOLUTE 0.07 10/3/uL (0.0-0.11); LYMPHOCYTES 27.3 %; LYMPHOCYTES ABSOLUTE 2.19 10/3/uL (0.67-4.30); MEAN CORPUS HGB CONC 31.8 g/dL (32.0-36.0); MEAN CORPUSCULAR HEMOGLOB 28.1 pg (26.0-34.0); MEAN CORPUSCULAR VOLUME 88.5 fL (80-100); MEAN PLATELET VOLUME 8.2 fL (9.2-13.0); MONOCYTES 9.7 %; MONOCYTES ABSOLUTE 0.78 10/3/uL (0.21-1.20); NEUTROPHILS 57.9 %; NEUTROPHILS ABSOLUTE 4.63 10/3/uL (2.02-8.40); PLATELET COUNT 194 10/3/uL (150-400); RBC DISTRIBUTION WIDTH 15.7 % (12.0-16.0); RED CELL COUNT 4.77 10/6/uL (4.7-6.1)
[2016-06-16 04:38] LABS: MANUAL DIFF NO %
[2016-06-16 04:50] LABS: BUN (BLOOD UREA NITROGEN) 31 MG/DL (6-23); CALCIUM, SERUM 9.2 MG/DL (8.5-10.4); CHLORIDE, SERUM 105 MMOL/L (96-112); CO2 (CARBON DIOXIDE) 30 MMOL/L (24-34); CREATININE 1.71 MG/DL (0.70-1.30); GFR AFRICAN AMERICAN 51 ML/MIN (>=60); GFR NON AFRICAN AMERICAN 44 ML/MIN (>=60); GLUCOSE, SERUM 98 MG/DL (60-99); PHOSPHORUS, SERUM 4.5 MG/DL (2.5-4.5); POTASSIUM, SERUM 4.1 MMOL/L (3.5-5.3); SODIUM, SERUM 144 MMOL/L (135-148)
[2016-06-17 20:40] LABS: BASOPHILS 0.3 %; BASOPHILS ABSOLUTE 0.04 10/3/uL (0.0-0.16); EOSINOPHILS 2.1 %; EOSINOPHILS ABSOLUTE 0.28 10/3/uL (0.0-0.53); HEMATOCRIT 46.4 % (40.0-51.0); HEMOGLOBIN 14.8 g/dL (13.6-17.8); IMMATURE GRANULOCYTES 1.2 %; IMMATURE GRANULOCYTES ABSOLUTE 0.16 10/3/uL (0.0-0.11); LYMPHOCYTES 22.2 %; LYMPHOCYTES ABSOLUTE 2.97 10/3/uL (0.67-4.30); MEAN CORPUS HGB CONC 31.9 g/dL (32.0-36.0); MEAN CORPUSCULAR HEMOGLOB 28.2 pg (26.0-34.0); MEAN CORPUSCULAR VOLUME 88.4 fL (80-100); MEAN PLATELET VOLUME 8.8 fL (9.2-13.0); MONOCYTES 6.2 %; MONOCYTES ABSOLUTE 0.83 10/3/uL (0.21-1.20); NEUTROPHILS ABSOLUTE 9.07 10/3/uL (2.02-8.40); RBC DISTRIBUTION WIDTH 15.9 % (12.0-16.0); RED CELL COUNT 5.25 10/6/uL (4.7-6.1)
[2016-06-17 20:41] LABS: MANUAL DIFF NO %; PLATELET COUNT 264 10/3/uL (150-400); WHITE BLOOD CELLS 13.4 10/3/uL (4.5-10.5)
[2016-06-17 20:55] LABS: CALCIUM, SERUM 9.1 MG/DL (8.5-10.4); CHLORIDE, SERUM 103 MMOL/L (96-112); CO2 (CARBON DIOXIDE) 29 MMOL/L (24-34); GFR AFRICAN AMERICAN 26 ML/MIN (>=60); GFR NON AFRICAN AMERICAN 23 ML/MIN (>=60); GLUCOSE, SERUM 106 MG/DL (60-99); POTASSIUM, SERUM 4.7 MMOL/L (3.5-5.3); SODIUM, SERUM 140 MMOL/L (135-148)
[2016-06-17 20:56] LABS: BUN (BLOOD UREA NITROGEN) 50 MG/DL (6-23)
[2016-06-17 21:51] LABS: PROCALCITONIN 0.32 ng/mL (<0.5)
[2016-06-18 10:49] LABS: BUN (BLOOD UREA NITROGEN) 49 MG/DL (6-23); CALCIUM, SERUM 8.6 MG/DL (8.5-10.4); CHLORIDE, SERUM 105 MMOL/L (96-112); CO2 (CARBON DIOXIDE) 29 MMOL/L (24-34); GFR AFRICAN AMERICAN 36 ML/MIN (>=60); GFR NON AFRICAN AMERICAN 31 ML/MIN (>=60); GLUCOSE, SERUM 96 MG/DL (60-99); POTASSIUM, SERUM 3.9 MMOL/L (3.5-5.3); SODIUM, SERUM 141 MMOL/L (135-148)
[2016-06-18 10:50] LABS: CREATININE 2.29 MG/DL (0.70-1.30)
[2016-06-19 06:52] LABS: BUN (BLOOD UREA NITROGEN) 50 MG/DL (6-23); CALCIUM, SERUM 8.7 MG/DL (8.5-10.4); CHLORIDE, SERUM 105 MMOL/L (96-112); CO2 (CARBON DIOXIDE) 28 MMOL/L (24-34); CREATININE 2.14 MG/DL (0.70-1.30); GFR AFRICAN AMERICAN 39 ML/MIN (>=60); GFR NON AFRICAN AMERICAN 34 ML/MIN (>=60); GLUCOSE, SERUM 84 MG/DL (60-99); POTASSIUM, SERUM 4.1 MMOL/L (3.5-5.3); SODIUM, SERUM 142 MMOL/L (135-148)
== END 2016-06-19 14:37 | DRG 208 ==
LOC: 1SO 13:17 → CCU 06-09 06:11 → 7NO 06-14 16:58
PROVIDERS: Hospitalist; Internal Medicine; Internal Medicine Critical Care Medicine; Nurse Practitioner Acute Care
PROC: 5A1945Z Respiratory Ventilation, 24-96 Consecutive Hours (ICD-10-PCS; principal; 2016-06-08)
PROC: 0BH17EZ Insertion of Endotracheal Airway into Trachea, Via Natural or Artificial Opening (ICD-10-PCS; 2016-06-08)
PROC: 02HV33Z Insertion of Infusion Device into Superior Vena Cava, Percutaneous Approach (ICD-10-PCS; 2016-06-09)
PROC: 4A02X4A Measurement of Cardiac Electrical Activity, Guidance, External Approach (ICD-10-PCS; 2016-06-09)
DX: J96.21 Acute and chronic respiratory failure with hypoxia (principal); G93.40 Encephalopathy, unspecified; J18.9 Pneumonia, unspecified organism; Z99.81 Dependence on supplemental oxygen; N18.3 Chronic kidney disease, stage 3 (moderate); L89.302 Pressure ulcer of unspecified buttock, stage 2; Z68.45 Body mass index [BMI] 70 or greater, adult; E66.01 Morbid (severe) obesity due to excess calories; F17.210 Nicotine dependence, cigarettes, uncomplicated; G47.33 Obstructive sleep apnea (adult) (pediatric); I89.0 Lymphedema, not elsewhere classified; J96.22 Acute and chronic respiratory failure with hypercapnia; Z86.73 Personal history of transient ischemic attack (TIA), and cerebral infarction without residual deficits; Z66 Do not resuscitate
CPT/HCPCS: 31720; 36569; 36600; 70450; 70496; 70498; 71010; 74000; 80048; 80053; 80069; 80305; 81001; 82140; 82330; 82607; 82746; 82803; 82805; 82947; 82962; 83540; 83550; 83605; 83735; 83880; 84100; 84132; 84145; 84295; 84443; 84484; 85014; 85025; 87040; 87070; 87205; 87641; 92522-GN; 92950; 93005; 93880; 93970; 94002; 94003; 94640; 94660; 94770; 95816; 95819; 97110-GP; 97162-GP; 97530-GP; A9270-GY; C1751; C1894; C8929; C9113; G8978-CL-GP; G8979-CK-GP; G8999-CJ-GN; G9158-CJ-GN; G9186-CJ-GN; J0360; J0456; J1956; J3010; P9047; Q9957; Q9967